=== PATIENT | male | born 1990 | race Caucasian/White ===

== ENCOUNTER 2018-09-26 09:33 | Emergency (ER) | payer OTHER ==
[~2018-09-26] VITALS: Ht 177.8 cm; Wt 117.9 kg
--- NOTE | 2018-09-26 09:40 | NUR ---
[facility] here for medical clearance for booking, Pt complains of generalized body pain X 2 days, to ER bed 2, hooked to monitor, awaiying MD stone
[2018-09-26] MEDS ORDERED: CLONIDINE HCL 0.1 MG TABLET ONE (10:22)
[2018-09-26] MEDS ORDERED: HYDROCODONE/APAP 10/325MG 1 EA TABLET ONE (10:22)
--- NOTE | 2018-09-26 10:30 | NUR ---
Patient discharged in custody of [place] police in stable condition. Written and verbal after care instructions given. Patient verbalizes understanding of instruction.
[2018-09-26] MEDS: CLONIDINE HCL 0.1 MG TABLET PO ONE (10:31)
[2018-09-26] MEDS: HYDROCODONE/APAP 10/325MG 1 EA TABLET PO ONE (10:31)
[2018-09-26 11:56] VITALS: BP 174/87
== END 2018-09-26 10:30 ==
LOC: ER 09:35
DX: F15.93 Other stimulant use, unspecified with withdrawal (principal); T40.2X5A Adverse effect of other opioids, initial encounter; Y92.89 Other specified places as the place of occurrence of the external cause
CPT/HCPCS: Z7610